=== PATIENT | female | born 1945 | race Caucasian/White ===

== ENCOUNTER 2019-04-09 11:46 | Inpatient (IN) | payer MEDICARE, SELFPAY ==
[2019-04-09] VITALS (10 sets, daily range): BP systolic 108–129; BP diastolic 53–87; PULSE 70–111; RESP 16–20; TEMP 36.7–39.1; O2SAT 94–97; BMI 29.8; BMI 30.7
[2019-04-09] MEDS: 0.9% Normal Saline 1,000 ML 1000 ML IV ×2 (13:19→14:20)
[2019-04-09 13:29] LABS: Absolute Lymphocyte Count 0.69 X10^3/ul (0.83-4.51); Absolute Neutrophil Count 14.2 X10^3/uL (2.0-7.7); Basophil# 0.01 X10^3/uL; Basophil% 0.1 % (0-1); Differential Indicated SCAN CRITERIA MET; Hematocrit 23.2 % (37-47); Hemoglobin 7.4 g/dl (12.0-15.0); Lymphocyte # 0.69 X10^3/ul (4.0); Lymphocyte % 4.2 % (19-41); Mean Corp Hgb Conc 31.9 g/gl (32-36); Mean Corpuscular Volume 100.4 fL (81-99); Mean Platelet Vol. 9.8 fl (6.2-12.0); Monocyte# 1.33 X10^3/uL; Monocyte% 8.1 % (0-10); Neutrophil # 14.21 X10^3/uL (2.7-7.7); POSITIVE COUNT NO; POSITIVE DIFFERENTIAL NO; POSITIVE MORPHOLOGY YES; Platelet Count 105 K/mm3 (150-450); RBC Distribution Width CV 18.9 % (11.6-14.6); RBC Distribution Width SD 70.7 fl (35.1-43.9); Red Blood Count 2.31 M/mm3 (4.2-5.4); White Blood Count 16.3 K/mm3 (4.4-11.0)
[2019-04-09 13:38] LABS: AST(SGOT) 20 U/L (15-37); Alanine Aminotransfer ALT/SGPT 14 U/L (13-56); Albumin, Serum 2.6 g/dL (3.2-5.0); Alkaline Phosphatase 121 U/L (45-117); Anion Gap 8 (5-15); BUN 45 mg/dL (7-18); BUN/Creat Ratio 22.6 RATIO (10-20); Calcium,Total 8.3 mg/dL (8.5-10.1); Chloride 107 mmol/L (98-107); Creatinine, Serum 1.99 mg/dL (0.55-1.02); EST Glomerular Filtration Rate 26 mL/min (>60); Est Glom Filt Rate - Afr Amer 32 mL/min (>60); Estimated Creatinine Clearance 22.07 ml/min; Glucose 221 mg/dL (74-106); Lipase 58 U/L (73-393); Potassium 4.5 mmol/L (3.5-5.1); Protein, Total 7.6 g/dL (6.4-8.2); Sodium Level 137 mmol/L (136-145)
[2019-04-09 14:23] LABS: Mucous, Urine 0 SEEN /hpf (<or=2+)
[2019-04-09 14:40] LABS: Color, Urine Yellow (Yellow); Glucose, Dipstick Normal (Normal); Ketone-Dipstick 5 mg/dl (Negative); Leukocyte Esterase-Dipstick 500 /ul (Negative); Nitrite-Dipstick Negative (Negative); Occult Blood-Urine 250 /ul (Negative); Protein-Dipstick 30 mg/dl (Negative); Specific Gravity, Urine 1.025 (1.002-1.030); Urine Clarity Turbid (Clear); Urine Urobilinogen 1 mg/dl (Normal)
[2019-04-09 14:43] LABS: Urine Bilirubin Dipstick 1 mg/dL (Negative)
[2019-04-09] MEDS: 0.9% Normal Saline 1,000 ML 999 ML IV (15:30)
[2019-04-09 15:36] LABS: Bacteria 4+ /hpf (None Seen); Red Blood Cells-Urine 25-50 SEEN /hpf (0-5); Squamous Epithelial Cells - UA 5-10 SEEN /hpf (5-10); White Blood Cells >100 SEEN /hpf (0-5)
[2019-04-09 15:41] LABS: Lactic Acid 1.5 mmol/L (0.4-2.0)
--- NOTE | 2019-04-09 15:50 | ED.DCSUM_ITS ---
- ER Visit Summary Date of Service: 04/09/19 Chief Complaint: Diarrhea History of Present Illness: The patient is a 74 F who has a history of endometrial cancer with metastasis. She currently sees Dr. Chairez. She reports last having chemotherapy about 4 weeks ago. She states she had diarrhea for the past 2 to 3 days. Today was incontinent in the bed. She is been unable to eat solid foods this week stating that the food does get stuck in her mouth. She can handle liquids okay. She states this happened once before with chemotherapy. Yesterday she had a temperature of 100. Blood cultures were obtained at her oncologist office and she was started on Augmentin. Today family spoke with the office and they sent her to the emergency department for further evaluation. Yesterday's white blood cell count was 8.99 hemoglobin was 8.9. Creatinine was 1.37 with a BUN of 29. Chest x-ray yesterday was obtained and was negative for infiltrates Physical Examination: Afebrile vital signs are stable Gen: Well-nourished well-developed Head: Normocephalic atraumatic Eyes: Perrl EOMI ENT: TMs clear no rhinorrhea moist mucous membranes Neck: Supple no lymphadenopathy no JVD nontender CVS: Regular rate rhythm no murmurs normal S1-S2 Respiratory: No distress clear to auscultation bilaterally chest nontender Abdomen: Soft nontender nondistended normal bowel sounds no masses Back: Nontender Extremity: Nontender no edema Skin: Normal color no rash Neuro: alert orientated ?3 CN II-XII intact normal strength sensation Psych: Normal affect normal mood Test Results: White count 16.3 hemoglobin 7.4. BUN 45 with creatinine 1.99. Liver lipase negative. Urinalysis: White blood cell count greater than 100 red blood cells 25-50 4+ bacteria. Lactic acid 1.5. Emergency Department Course and Treatment: Patient received IV fluids and Rocephin. Urine culture was sent. Patient began to have Rigor's and her temperatures up to 99.4. I believe the patient to be septic. Our plan will be admission to the hospital for further care. Impression: 1. Acute urine tract infection 2. Acute kidney injury 3. Dehydration 4. Acute on chronic anemia 5. Sepsis This note was generated with [employer] software. It may contain incorrect words, spelling, and punctuation that were not noted in review of the chart prior to signing ED Disposition - Plan for ED Patient: Referrals: [facility] Doctor,Out of [Primary Care Provider] -
[2019-04-09] MEDS: Acetaminophen 500 MG Tablet 1000 MG PO (16:15)
[2019-04-09] MEDS: Ceftriaxone 1 GM/50 ML BAG IV (16:25)
--- NOTE | 2019-04-09 16:27 | PCM.HP.STD ---
Problem List (1) UTI (urinary tract infection) Status: Acute (2) HTN (hypertension) Status: Chronic (3) Peripheral neuropathy Status: Chronic (4) Iron deficiency anemia Status: Chronic (5) GERD (gastroesophageal reflux disease) Status: Chronic History of Present Illness Date of Admission: 04/09/19 Chief Complaint: Chills, malaise, diarrhea. The patient is a 74 year old F who presents emergency room due to chills, fever and diarrhea. Patient reports for the past week she has been generally feeling unwell. She reports yesterday morning she developed shaking chills and was to get chemotherapy which was canceled due to fever/chills. She also reports over the past 2 days she has had diarrhea which is black in color. She does report she is on iron supplementation. She denies history of diarrhea with prior chemotherapy treatments. She was started on Augmentin by her oncologist yesterday due to fever. She complains of poor oral intake and mild nausea. Denies emesis. She reports she has noticed lower back pain. She denies urinary symptoms including frequency, dysuria. She is currently undergoing chemotherapy treatment for metastatic endometrial cancer. Her other past medical history includes hypertension, iron deficiency anemia, peripheral neuropathy, GERD. Past Medical History Past Medical History (Chronic Problems): Chronic Problems HTN (hypertension) (Chronic) Peripheral neuropathy (Chronic) Iron deficiency anemia (Chronic) GERD (gastroesophageal reflux disease) (Chronic) Allergies No Known Allergies Allergy (Verified 04/09/19 11:49) Home Medications: Ambulatory Orders Medication Instructions Recorded Acetaminophen [Tylenol Extra 500 mg PO Q6H PRN PRN 04/09/19 Strength] Amlodipine Besylate 5 mg PO DAILY 04/09/19 Amoxicillin/Potassium Clav 1 tab PO BID 04/09/19 [Augmentin 875-125 Tablet] Benzonatate 100 mg PO TID 04/09/19 Ferrous Sulfate [Iron] 325 mg PO DAILY 04/09/19 Fexofenadine HCl [Ema Allergy] 180 mg PO DAILY 04/09/19 Gabapentin [Neurontin] 100 mg PO BID 04/09/19 Lisinopril [Zestril] 10 mg PO DAILY 04/09/19 Omeprazole 20 mg PO DAILY 04/09/19 Ondansetron HCl [Zofran] 8 mg PO Q8 PRN 04/09/19 Surgical History: - - Radical hysterectomy and bilateral salpingo-oophorectomy, left chest port placement, esophageal/pharyngeal stricture dilatation. 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 Paternal History Items: - - Denies known paternal medical history including cardiac history. Review of Systems Constitutional: Reports: Chills, Fever, Malaise HEENT: Denies: Head Aches, Sinus Congestion, Sinus Drainage Cardiovascular: Denies: Chest Pain, Palpitations Respiratory: Denies: Cough, Shortness of breath at rest, Sputum production Gastrointestinal: Reports: Diarrhea, Nausea, Melena. Denies: Abdominal Pain, Vomiting Genitourinary: Reports: - - Flank pain. Denies: Dysuria, Frequency, Hematuria, Urgency Musculoskeletal: Denies: Joint Pain, Joint Tenderness Skin: Denies: Rash, Wounds Neurological: Denies: Numbness, Tingling, Focal weakness Psychiatric: Denies: Anxiety, Depression, Homicidal Ideations, Suicidal Ideations Hematologic/ Lymphatic: Denies: Easy Bruising, Easy Bleeding VTE Information - Inpt Only VTE Present on Admission: No VTE Mechan Device Prophylaxis: None VTE Pharm Prophylaxis ordered?: Yes Patient Problems: Active and Suspected Problems UTI (urinary tract infection) (Acute) - Physical Exam General: Alert, Oriented x3, Cooperative, - - Ill-appearing, rigors HEENT: Atraumatic, PERRLA, EOMI, Normocephalic Oral: Dry Mucosa Neck: Supple, No JVD, Negative Carotid Bruits Lungs: Clear to auscultation, Normal air movement Cardiovascular: Regular rate, Regular Rhythm, Normal S1, Normal S2, No murmurs Abdomen: Bowel Sounds Present, Soft, Non Tender, Non-Distended Extremities: No clubbing, No cyanosis, No edema, Capillary Refill Less than 3 Seconds Skin: No rashes, No breakdown Musculoskeletal: No Tenderness to Palpation of Joints or Extremities Neurological: Cranial nerves II-XII grossly intact, Neuro grossly intact Psych/Mental Status: Normal Affect, Appropriate Vital Signs Temp Pulse Resp BP Pulse Ox 102.4 F H 111 H 20 H 129/87 H 96 04/09/19 16:18 04/09/19 16:18 04/09/19 16:18 04/09/19 16:18 04/09/19 16:18 Oxygen Delivery Method Room Air Weight: 174 lb Body Mass Index (BMI) 29.8 Laboratory Tests Past 24 Hrs 04/09/19 04/09/19 04/09/19 13:15 13:15 14:15 WBC 16.3 H RBC 2.31 L Hgb 7.4 L Hct 23.2 L MCV 100.4 H MCH 32.0 MCHC 31.9 L RDW 18.9 H RDW Differential 70.7 H Plt Count 105 L MPV 9.8 Immature Gran % (Auto) 0.600 Neut % (Auto) 87.0 H Lymph % (Auto) 4.2 L [place] % (Auto) 8.1 Eos % (Auto) 0.0 Baso % (Auto) 0.1 Absolute Neuts (auto) 14.2 H Absolute Lymphs (auto) 0.69 L Total Counted Not Reportable Differential Comment COMMENT Sodium 137 Potassium 4.5 Chloride 107 Carbon Dioxide 22.0 Anion Gap 8 BUN 45 H Creatinine 1.99 H Estim Creat Clear Calc 22.07 Est GFR (MDRD) Af Amer 32 L Est GFR (MDRD) Non-Af 26 L BUN/Creatinine Ratio 22.6 H Glucose 221 H Lactic Acid Calcium 8.3 L Total Bilirubin 0.40 Direct Bilirubin 0.20 AST 20 ALT 14 Alkaline Phosphatase 121 H Total Protein 7.6 Albumin 2.6 L Globulin 5.0 H Lipase 58 L Urine Color Yellow Urine Clarity Turbid Urine pH 5.0 Ur Specific [place] 1.025 Urine Protein 30 H Urine Glucose (UA) Normal Urine Ketones 5 H Urine Occult Blood 250 H Urine Nitrite Negative Urine Bilirubin 1 H Urine Urobilinogen 1 H Ur Leukocyte Esterase 500 H Urine RBC 25-50 SEEN Urine WBC >100 SEEN Ur Squamous Epith Cells 5-10 SEEN Urine Bacteria 4+ Urine Mucus 0 SEEN 04/09/19 15:09 WBC RBC Hgb Hct MCV MCH MCHC RDW RDW Differential Plt Count MPV Immature Gran % (Auto) Neut % (Auto) Lymph % (Auto) [place] % (Auto) Eos % (Auto) Baso % (Auto) Absolute Neuts (auto) Absolute Lymphs (auto) Total Counted Differential Comment Sodium Potassium Chloride Carbon Dioxide Anion Gap BUN Creatinine Estim Creat Clear Calc Est GFR (MDRD) Af Amer Est GFR (MDRD) Non-Af BUN/Creatinine Ratio Glucose Lactic Acid 1.5 Calcium Total Bilirubin Direct Bilirubin AST ALT Alkaline Phosphatase Total Protein Albumin Globulin Lipase Urine Color Urine Clarity Urine pH Ur Specific [place] Urine Protein Urine Glucose (UA) Urine Ketones Urine Occult Blood Urine Nitrite Urine Bilirubin Urine Urobilinogen Ur Leukocyte Esterase Urine RBC Urine WBC Ur Squamous Epith Cells Urine Bacteria Urine Mucus Assessment/Plan All Active Problems UTI (urinary tract infection) (Acute) 1. Acute sepsis secondary to acute UTI-(WBC 16.3, Temp 102.4F, tachycardic) UA significant for greater than 100 WBC, 500 leukocyte, 4+ bacteria. Urine culture pending. IV Rocephin. IV fluids. Obtain blood cultures. PRN Tylenol for fever. PRN Zofran for nausea. 2. Acute kidney injury secondary to dehydration-unclear baseline. IV fluids. Trend BMP. 3. Suspected acute anemia on chronic iron deficiency anemia/macrocytic anemia-unknown baseline. Hemoglobin 7.4 on admission. Trend CBC. Stool for occult blood. Continue iron supple mentation. 4. Acute diarrhea-possible viral gastroenteritis. Send stool for C. difficile, enteric bacteriology. 5. Elevated glucose-possible stress response. Check hemoglobin A1c. 6. Metastatic endometrial cancer-follows with Dr. Rodriguez. Chemotherapy treatment canceled yesterday due to fever and chills. Left chest port in place. PT/OT. 7. Hypertension-stable, continue home amlodipine regimen. Hold lisinopril regimen given JOHN. 8. Peripheral neuropathy-continue gabapentin regimen. 9. GERD-continue PPI. DVT prophylaxis-SCDs, hold pharmacologic prophylaxis pending further anemia work-up This patient was seen by RHODA Mckeon under the supervision of Dr. Wayne.
[2019-04-09] MEDS: 0.9% Normal Saline 1,000 ML 150 ML IV (17:37)
[2019-04-09 17:58] LABS: Magnesium 1.8 mg/dL (1.6-2.6)
[2019-04-09] MEDS: Pantoprazole Sodium 40 MG Tablet PO (21:18)
[2019-04-09] MEDS: Gabapentin 100 MG Capsule PO (21:18)
[2019-04-09] MEDS: Acetaminophen 325 MG Tablet 650 MG PO (21:18)
[2019-04-09] MEDS: Ferrous Sulfate 325 MG Tablet PO (21:18)
[2019-04-09 22:46] LABS: Hematocrit 20.6 % (37-47); Hemoglobin 6.4 g/dl (12.0-15.0)
[2019-04-10] VITALS (21 sets, daily range): BP systolic 104–135; BP diastolic 46–69; PULSE 70–92; RESP 16–18; TEMP 36.4–36.8; O2SAT 92–100; BMI 30.7
--- NOTE | 2019-04-10 | IMM_PTH ---
PATIENT: ANDREI MCMAHAN LOC: MS3 U#:[id number] AGE/SX: 74/F [place] [facility] [place]: Dr. Jami Gordillo DO : 1945 BED: 1 DIS: 04/11/2019 SPEC #: [id number] RECD: 04/12/19 11:17 STATUS: OSEI REQ #: [id number] TRAVIS: 04/10/19 00:[address]: Tawny Craig DEPT: IMMUNOHISTOCHEMISTRY RECD BY: Edson Galindo ENTERED: 04/12/19 11:18 SP TYPE: IMMUNO OTHR DR: MD Dr. Jami Arnold DO Out [facility] Doctor Tissues: Gastric mucous membrane Procedures: H Pylori (initial) PHYSICIAN & INSTITUTION [place] [id number] SPECIMEN INFORMATION: Tissue Source: Antral biopsy Clinical Info: Anemia Specimen Number: [id number] CPT code: 56818 METHODOLOGY: Deparaffinized sections of prefer/formalin-fixed tissue or PAP/DQ stained slides are incubated with monoclonal/polyclonal antibodies/oligonucleotide probes. Localization is made via biotin free immunoperoxidase method. Appropriate controls are performed and reacted as expected. Results on target cell population are indicated in the following table: RESULTS: ANTIBODY / CLONE RESULT H Pylori (polyclonal) negative These tests were developed and their performance characteristics determined by [facility]. They may not have been cleared or approved by the U.S. Food and Drug Administration. The FDA has determined that such clearance or approval is not necessary. INTERPRETATION: Antral biopsy: Negative for Helicobacter pylori organisms. FA:kyle 04/13/19
[2019-04-10] MEDS: 0.9% Normal Saline 1,000 ML 150 ML IV (00:33)
[2019-04-10] MEDS: 0.9% NaCl Peripheral Flush Adult/Peds IV ×5 (04:49→05:55)
[2019-04-10 05:40] LABS: Hematocrit 19.4 % (37-47); Mean Corp Hgb Conc 30.9 g/gl (32-36); Mean Corpuscular Hgb 31.3 pg (27.0-32.0); Platelet Count 80 K/mm3 (150-450); RBC Distribution Width SD 71.4 fl (35.1-43.9); Red Blood Count 1.92 M/mm3 (4.2-5.4); White Blood Count 12.4 K/mm3 (4.4-11.0)
[2019-04-10 05:41] LABS: Anion Gap 9 (5-15); BUN 39 mg/dL (7-18); BUN/Creat Ratio 25.2 RATIO (10-20); Calcium,Total 6.9 mg/dL (8.5-10.1); Chloride 117 mmol/L (98-107); Creatinine, Serum 1.55 mg/dL (0.55-1.02); EST Glomerular Filtration Rate 35 mL/min (>60); Est Glom Filt Rate - Afr Amer 42 mL/min (>60); Estimated Creatinine Clearance 28.33 ml/min; Glucose 133 mg/dL (74-106); Potassium 4.4 mmol/L (3.5-5.1); Scan Indicated on CBC? Y/N YES- FLAGS NOTED; Sodium Level 143 mmol/L (136-145)
[2019-04-10 06:10] LABS: Differential Comment SCAN
[2019-04-10] MEDS: Electrolyte Solution/Peg's 4000 ML PO (09:07)
--- NOTE | 2019-04-10 10:27 | PCM.CONS.B ---
- Consult Date of Consult: 04/10/19 - Reason for Consult Chief Complaint: anemia, fever History of Present Illness: 74 y/o WF presented to [facility] ED - referred from her oncologists' office for anemia and weakness and fever/chills. Hemoglobin was 8.9, this morning it is down to hemoglobin of 6. Had colonoscopy in 2012 revealing benign polyps. Denies noting any blood in stools. Denies hematemesis. Denies abdominal pain. Denies history of PUD. Notes dark stools but is on iron supplementation. 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 Past Surgical History: radical abdominal hysterectomy/BSO cholecystectomy tubes tied left IJ portacath esophageal/pharyngeal dilatation 2013 Medications: Acetaminophen [Tylenol Extra 500 mg PO Q6H PRN PRN Amlodipine Besylate 5 mg PO DAILY Amoxicillin/Potassium Clav 1 tab PO BID Benzonatate 100 mg PO TID Ferrous Sulfate [Iron] 325 mg PO DAILY Fexofenadine HCl [Ema Allergy] 180 mg PO DAILY Gabapentin [Neurontin] 100 mg PO BID Lisinopril [Zestril] 10 mg PO DAILY Omeprazole 20 mg PO DAILY Ondansetron HCl [Zofran] prn Allergies: Has no known drug allergies Social history: TOB use denies lives in [facility] Review of Systems: General - denies fevers, generalized weakness - on chemotherapy Cardiovascular denies chest pain, denies history of heart attack Pulmonary denies shortness of breath, denies coughing up blood Gastrointestinal as per HPI, denies blood in stools, denies abdominal pain Neurological has peripheral neuropathy due to chemotherapy, denies seizures, denies history of stroke Genitourinary denies burning with urination, denies blood in urine Hematological denies spontaneous/prolonged bleeding Skin denies open non healing wounds Musculoskeletal recent dislocation of left shoulder Endocrine denies diabetes Psychological denies hallucinations Physical examination: Vital signs Temp Wt: 173# Ht: 5'4 Temp 97.8F General WD/WN WF in no apparent distress, alert and oriented, not septic appearing HEENT Normocephalic. EOM intact with sclera clear and no icterus noted. Neck is supple with no jugular venous distention noted. Trachea is midline. Lungs normal breath sounds. No rales/rhonchi/wheezing noted. No labored breathing noted, such as retractions. No cough heard. Heart normal S1 and S2 auscultated. No rubs/clicks/murmurs noted. Normal size and location by auscultation. Abdomen soft and benign. Normal bowel sounds Extremities no pitting edema noted. . Genitourinary/Rectal deferred Skin normal skin integrity. Neurological non focal. Psychological normal affect, patient is calm and appropriate Impression: anemia on chemotherapy for metastatic uterine cancer to lung Discussion/Plan: I have discussed the above with the patient. Given that she has anemia and that she is on chemotherapy, will evaluate for GI source of bleeding. I have offered upper and lower endoscopy. I have explained the procedures to the patient. I have counseled the patient as to the risks of the procedure, including but not limited to: infection, bleeding, injury to any intraabdominal organs such as liver/spleen, perforation of the GI tract, inability to complete the procedure, complications of anesthesia, etc. She understands. She agrees to proceed. Will have patient drink colyte and then proceed with endoscopies at 5 pm today. I have answered all questions to the patient?s satisfaction and the patient has no further questions.
--- NOTE | 2019-04-10 10:47 | PN_ITS ---
Patient Problems: Active and Suspected Problems UTI (urinary tract infection) (Acute) Subjective: Patient seen and examined. Fever, chills improved. Denies dizziness, lightheadedness, shortness of breath. Plan for upper and lower scope at this evening due to anemia. - Physical Exam General: Alert, Oriented x3, Cooperative HEENT: Atraumatic, PERRLA, EOMI, Normocephalic Neck: Supple, No JVD, Negative Carotid Bruits Lungs: Clear to auscultation, Normal air movement Cardiovascular: Regular rate, Regular Rhythm, Normal S1, Normal S2, No murmurs Abdomen: Bowel Sounds Present, Soft, Non Tender, Non-Distended Extremities: No clubbing, No cyanosis, No edema, Capillary Refill Less than 3 Seconds Skin: No rashes, No breakdown Musculoskeletal: No Tenderness to Palpation of Joints or Extremities Neurological: Cranial nerves II-XII grossly intact, Neuro grossly intact Psych/Mental Status: Normal Affect, Appropriate Vital Signs Temp Pulse Resp BP Pulse Ox 98.1 F 78 18 129/59 H 96 04/10/19 10:30 04/10/19 10:30 04/10/19 10:30 04/10/19 10:30 04/10/19 10:30 Oxygen Delivery Method Room Air Weight: 178 lb 12.718 oz Body Mass Index (BMI) 30.7 Intake and Output for Last 24 Hours 04/08/19 04/09/19 04/10/19 23:59 23:59 23:59 Intake Total 1435 / 1435 Balance 1435 / 1435 Microbiology Past 72 Hours 04/09/19 17:55 Enteric Bacteriology - Final Stool 04/09/19 17:55 C. difficile DNA Amplification - Final Stool 04/09/19 17:55 Stool Occult Blood (CUONG) - Final Stool Laboratory Tests Past 24 Hrs 04/09/19 04/09/19 04/09/19 13:15 13:15 13:15 WBC 16.3 H RBC 2.31 L Hgb 7.4 L Hct 23.2 L MCV 100.4 H MCH 32.0 MCHC 31.9 L RDW 18.9 H RDW Differential 70.7 H Plt Count 105 L MPV 9.8 Immature Gran % (Auto) 0.600 Neut % (Auto) 87.0 H Lymph % (Auto) 4.2 L [place] % (Auto) 8.1 Eos % (Auto) 0.0 Baso % (Auto) 0.1 Absolute Neuts (auto) 14.2 H Absolute Lymphs (auto) 0.69 L Total Counted Not Reportable Differential Comment COMMENT Sodium 137 Potassium 4.5 Chloride 107 Carbon Dioxide 22.0 Anion Gap 8 BUN 45 H Creatinine 1.99 H Estim Creat Clear Calc 22.07 Est GFR (MDRD) Af Amer 32 L Est GFR (MDRD) Non-Af 26 L BUN/Creatinine Ratio 22.6 H Glucose 221 H Hemoglobin A1c 5.0 Lactic Acid Calcium 8.3 L Phosphorus Magnesium Total Bilirubin 0.40 Direct Bilirubin 0.20 AST 20 ALT 14 Alkaline Phosphatase 121 H Total Protein 7.6 Albumin 2.6 L Globulin 5.0 H Lipase 58 L Urine Color Urine Clarity Urine pH Ur Specific [place] Urine Protein Urine Glucose (UA) Urine Ketones Urine Occult Blood Urine Nitrite Urine Bilirubin Urine Urobilinogen Ur Leukocyte Esterase Urine RBC Urine WBC Ur Squamous Epith Cells Urine Bacteria Urine Mucus Blood Type Antibody Screen Crossmatch 04/09/19 04/09/19 04/09/19 13:15 14:15 15:09 WBC RBC Hgb Hct MCV MCH MCHC RDW RDW Differential Plt Count MPV Immature Gran % (Auto) Neut % (Auto) Lymph % (Auto) [place] % (Auto) Eos % (Auto) Baso % (Auto) Absolute Neuts (auto) Absolute Lymphs (auto) Total Counted Differential Comment Sodium Potassium Chloride Carbon Dioxide Anion Gap BUN Creatinine Estim Creat Clear Calc Est GFR (MDRD) Af Amer Est GFR (MDRD) Non-Af BUN/Creatinine Ratio Glucose Hemoglobin A1c Lactic Acid 1.5 Calcium Phosphorus 2.0 L Magnesium 1.8 Total Bilirubin Direct Bilirubin AST ALT Alkaline Phosphatase Total Protein Albumin Globulin Lipase Urine Color Yellow Urine Clarity Turbid Urine pH 5.0 Ur Specific [place] 1.025 Urine Protein 30 H Urine Glucose (UA) Normal Urine Ketones 5 H Urine Occult Blood 250 H Urine Nitrite Negative Urine Bilirubin 1 H Urine Urobilinogen 1 H Ur Leukocyte Esterase 500 H Urine RBC 25-50 SEEN Urine WBC >100 SEEN Ur Squamous Epith Cells 5-10 SEEN Urine Bacteria 4+ Urine Mucus 0 SEEN Blood Type Antibody Screen Crossmatch 04/09/19 04/10/19 04/10/19 22:34 04:48 04:48 WBC 12.4 H RBC 1.92 L Hgb 6.4 L 6.0 L Hct 20.6 L 19.4 L MCV 101.0 H MCH 31.3 MCHC 30.9 L RDW 19.0 H RDW Differential 71.4 H Plt Count 80 L MPV 11.0 Immature Gran % (Auto) Neut % (Auto) Lymph % (Auto) [place] % (Auto) Eos % (Auto) Baso % (Auto) Absolute Neuts (auto) Absolute Lymphs (auto) Total Counted Differential Comment SCAN Sodium 143 Potassium 4.4 Chloride 117 H Carbon Dioxide 17.0 L Anion Gap 9 BUN 39 H Creatinine 1.55 H Estim Creat Clear Calc 28.33 Est GFR (MDRD) Af Amer 42 L Est GFR (MDRD) Non-Af 35 L BUN/Creatinine Ratio 25.2 H Glucose 133 H Hemoglobin A1c Lactic Acid Calcium 6.9 L Phosphorus Magnesium Total Bilirubin Direct Bilirubin AST ALT Alkaline Phosphatase Total Protein Albumin Globulin Lipase Urine Color Urine Clarity Urine pH Ur Specific [place] Urine Protein Urine Glucose (UA) Urine Ketones Urine Occult Blood Urine Nitrite Urine Bilirubin Urine Urobilinogen Ur Leukocyte Esterase Urine RBC Urine WBC Ur Squamous Epith Cells Urine Bacteria Urine Mucus Blood Type Antibody Screen Crossmatch 04/10/19 06:00 WBC RBC Hgb Hct MCV MCH MCHC RDW RDW Differential Plt Count MPV Immature Gran % (Auto) Neut % (Auto) Lymph % (Auto) [place] % (Auto) Eos % (Auto) Baso % (Auto) Absolute Neuts (auto) Absolute Lymphs (auto) Total Counted Differential Comment Sodium Potassium Chloride Carbon Dioxide Anion Gap BUN Creatinine Estim Creat Clear Calc Est GFR (MDRD) Af Amer Est GFR (MDRD) Non-Af BUN/Creatinine Ratio Glucose Hemoglobin A1c Lactic Acid Calcium Phosphorus Magnesium Total Bilirubin Direct Bilirubin AST ALT Alkaline Phosphatase Total Protein Albumin Globulin Lipase Urine Color Urine Clarity Urine pH Ur Specific [place] Urine Protein Urine Glucose (UA) Urine Ketones Urine Occult Blood Urine Nitrite Urine Bilirubin Urine Urobilinogen Ur Leukocyte Esterase Urine RBC Urine WBC Ur Squamous Epith Cells Urine Bacteria Urine Mucus Blood Type B NEGATIVE Antibody Screen NEGATIVE Crossmatch See Detail Medical Necessity - Tobacco Use Smoking Status: Never smoker Tobacco Use: Non-smoker, Secondhand Assessment/Plan All Active Problems UTI (urinary tract infection) (Acute) 1. Acute sepsis secondary to acute UTI-(WBC 16.3, Temp 102.4F, tachycardic) UA significant for greater than 100 WBC, 500 leukocyte, 4+ bacteria. Urine and blood culture pending. IV Rocephin. IV fluids. PRN Tylenol for fever. PRN Zofran for nausea. 2. Acute kidney injury secondary to dehydration-improving with IV fluids. Trend BMP. 3. Acute anemia on chronic iron deficiency anemia/macrocytic anemia-Hemoglobin 7.4 on admission. Hemoglobin down to 6.[address] Craig, general surgery consulted. Stool for occult blood negative. Plan for upper and lower scopes this evening. 1 unit PRBC. Trend H&H. 4. Acute diarrhea-stool negative for C. difficile, enteric bacteriology negative. 5. Elevated glucose-suspected stress response. Hemoglobin A1c normal. 6. Metastatic endometrial cancer-follows with Dr. Rodriguez. Chemotherapy treatment canceled 04/08/19 due to fever and chills. Left chest port in place. PT/OT. 7. Hypertension-stable, continue home amlodipine regimen. Hold lisinopril regimen given JOHN. 8. Peripheral neuropathy-continue gabapentin regimen. 9. GERD-continue PPI. DVT prophylaxis-SCDs, hold pharmacologic prophylaxis pending further anemia work-up. This patient was seen by RHODA Mckeon under the supervision of Dr. Gordillo.
[2019-04-10] MEDS: Ceftriaxone 1 GM/50 ML BAG IV (13:01)
[2019-04-10] MEDS: 0.9% Normal Saline 1,000 ML 100 ML IV (13:01)
--- NOTE | 2019-04-10 13:16 | CASEMGMT ---
ELIZABETH YI assessment: Face to Face with patient for initial transition planning/care coordination assessment. ELIZABETH YI introduced self and role at [facility], pt voices understanding and consents to assessment at this time. Pt is lying in bed in no distress at this time. Pt is A/Ox4 at this time and answers all questions appropriately at this time. Care providers, pharmacy, and demographics verified at this time. PCP: Tawny Serrano Specialists: mitchell Rodriguez Preferred Pharmacy: [facility] Insurance: AeR Prescription Benefit: AeR Living Will/HPOA: Pt states has LW/HPOA and states that her , Paul Rodriguez, is HPOA. LNOK: Paul Rodriguez, Living Arrangements: Pt states lives with in a split level home and states no concerns at home at this time. Pt is independent with ADL's. Transportation: Pt states drives self and states no transportation concerns at this time. DME/HHC: Pt states has walker at home that she does not use and denies need for any further DME at this time. Pt states no hx of HHC or SNF in the past. Pt states no concerns with going home at time of discharge. Pt states is retired. Pt states does not smoke or drink ETOH. Pt states no further questions/concerns/needs at this time. CM to follow for any further discharge planning/needs. Advised pt to ask for CM if any further questions/concerns/needs arise, voices understanding. Pt Goal: Home Plan: [place] ELIZABETH YI
--- NOTE | 2019-04-10 16:30 | NURSING ---
PT TRANSPORTED TO PACU FOR EGD/COLONSCOPY- REPORT GIVEN
--- NOTE | 2019-04-10 17:05 | EGD_PTH ---
PATIENT: ANDREI MCMAHAN LOC: MS3 U#:[id number] AGE/SX: 74/F ROOM: [facility] RE04/09/[address]: Dr. Jami Gordillo DO : 1945 BED: 1 DIS: 04/11/2019 SPEC #: [id number] RECD: 04/10/19 18:59 STATUS: OSEI REErin #: [id number] TRAVIS: 04/10/19 17:[address]: Tawny Craig DEPT: SURGICAL PATHOLOGY RECD BY: Rui Gonzalez ENTERED: 04/12/19 10:08 SP TYPE: EGD BIOPSY OTHR DR: MD Dr. Jami Arnold DO Out [facility] Doctor Tissues: Gastric mucous membrane Procedures: Surgery Specimen Level IV HEADER OPERATION: Colonoscopy, EDG ([facility]) PRE-OP DIAGNOSIS: Anemia TISSUE SUBMITTED: Antral biopsy for histo and H. pylori MICROSCOPIC DIAGNOSIS Antral biopsy: Mild chronic gastritis. Negative for Helicobacter pylori organisms. See comment. FA:kyle 04/13/19 COMMENT The results of immunohistochemistry for Helicobacter pylori will be reported separately ([id number]). MICROSCOPIC DESCRIPTION Slides are reviewed. GROSS DESCRIPTION Received in fixative is one container labeled with the patient's name and designated antral biopsy. The specimen consists of two irregular fragments of alamo-red soft tissue that in aggregate measure 0.2 x 0.1 x 0.1 cm. The specimen is totally submitted in one cassette. / CE:kyle 04/12/19 TC:3 CPT: 42085
--- NOTE | 2019-04-10 17:43 | OP.ENDO_ITS ---
04/10/2019 Out Of [facility] Doctor Re : Upper GI endoscopy procedure for Tavia Rodriguez Dear [facility] Doctor This procedure was performed on Wednesday, April 10, 2019. My impressions and recommendations are as follows: Impressions : - Normal duodenal bulb, first portion of the duodenum and second portion of the duodenum. - Erythematous mucosa in the stomach. Biopsied. - Small hiatal hernia. Recommendations : - Discharge patient to home (ambulatory). - Resume previous diet. - Continue present medications. - Await pathology results. - My office will telephone with pathology results in 1-2 weeks My findings are described in the full procedure note, which is enclosed. If I can be of further assistance, please feel free to contact me at Doctor phone number(s): , Work: . Sincerely, MD Tawny Hsu MD 04/10/2019 5:42:43 PM This report has been signed electronically.
--- NOTE | 2019-04-10 17:45 | OP.ENDO_ITS ---
04/10/2019 Out Of Town Doctor Re : Colonoscopy procedure for Tavia Rodriguez Dear [facility] Doctor This procedure was performed on Wednesday, April 10, 2019. My impressions and recommendations are as follows: Impressions : - Diverticulosis in the sigmoid colon. - Non-bleeding external and internal hemorrhoids. - No specimens collected. Recommendations : - No repeat colonoscopy due to current age (66 years or older). - Continue present medications. My findings are described in the full procedure note, which is enclosed. If I can be of further assistance, please feel free to contact me at Doctor phone number(s): , Work: . Sincerely, MD Tawny Hsu MD 04/10/2019 5:44:50 PM This report has been signed electronically.
--- NOTE | 2019-04-10 17:45 | PCA ---
pt off floor
[2019-04-10] MEDS: levoFLOXacin IV 250 MG/50 ML BAG 50 MG IV (18:23)
[2019-04-10] MEDS: Ensure Clear 120 ML Liquid PO (18:26)
[2019-04-10] MEDS: Gabapentin 100 MG Capsule PO (22:22)
[2019-04-10] MEDS: Ferrous Sulfate 325 MG Tablet PO (22:23)
[2019-04-11] MEDS: 0.9% Normal Saline 1,000 ML 100 ML IV (02:55)
[2019-04-11 03:00] VITALS: PULSE 67
[2019-04-11 03:32] VITALS: BP 144/75; PULSE 79; RESP 16; TEMP 37; O2SAT 98
[2019-04-11 06:45] LABS: Anion Gap 6 (5-15); BUN 24 mg/dL (7-18); BUN/Creat Ratio 23.8 RATIO (10-20); Calcium,Total 7.2 mg/dL (8.5-10.1); Chloride 116 mmol/L (98-107); Creatinine, Serum 1.01 mg/dL (0.55-1.02); EST Glomerular Filtration Rate 57 mL/min (>60); Est Glom Filt Rate - Afr Amer 69 mL/min (>60); Estimated Creatinine Clearance 43.48 ml/min; Glucose 85 mg/dL (74-106); Potassium 3.7 mmol/L (3.5-5.1); Sodium Level 140 mmol/L (136-145)
[2019-04-11 06:51] LABS: Hematocrit 24.6 % (37-47); Hemoglobin 7.7 g/dl (12.0-15.0); Mean Corp Hgb Conc 31.3 g/gl (32-36); Mean Corpuscular Hgb 30.2 pg (27.0-32.0); Mean Corpuscular Volume 96.5 fL (81-99); Mean Platelet Vol. 11.5 fl (6.2-12.0); Platelet Count 76 K/mm3 (150-450); RBC Distribution Width CV 20.8 % (11.6-14.6); RBC Distribution Width SD 69.5 fl (35.1-43.9); Red Blood Count 2.55 M/mm3 (4.2-5.4); White Blood Count 7.3 K/mm3 (4.4-11.0)
[2019-04-11 06:55] LABS: Scan Indicated on CBC? Y/N YES- FLAGS NOTED
[2019-04-11 07:21] LABS: Differential Comment SCAN
[2019-04-11 07:56] VITALS: PULSE 75
[2019-04-11 08:33] VITALS: BP 128/69; PULSE 92; RESP 16; TEMP 36.7; O2SAT 96
[2019-04-11] MEDS: Ferrous Sulfate 325 MG Tablet PO (08:45)
[2019-04-11] MEDS: amLODIPine 5 MG Tablet PO (08:45)
[2019-04-11] MEDS: Gabapentin 100 MG Capsule PO (08:45)
--- NOTE | 2019-04-11 10:09 | PCM.PN.BLA ---
Progress Note Patient was seen independently and in conjunction with Rhoda Ramirez NP. She is afebrile. Vital signs are stable. She is maintaining an appropriate oxygen saturation of 96 to 98% on room air today. EGD showed mild gastritis only. Colonoscopy showed multiple small and large mouth diverticuli in the sigmoid colon and nonbleeding internal and external hemorrhoids. Denies nausea today, no dysuria, no hesitancy. She does report some mild left flank pain. All lab was personally reviewed today the patient received 1 unit of packed red blood cells yesterday for hemoglobin of 6. Recheck was 8. Hemoglobin today is 7.7. White blood cell count is now normal at 7.3 and the platelets are stable at 76,000. She has a persistent mild metabolic acidosis with a CO2 of 18. BUN is 24 and the creatinine today is 1.01, down from 1.99 on 04/09/2019. Vitamin D level is pending. Alert and oriented x3, appears to be in no acute distress, pleasant Mucous membranes are dry, no mucosal lesions Heart-regular rate and rhythm, no murmur, no gallop, no ectopy Lungs-clear to auscultation Abdomen-soft, no guarding with palpation, bowel sounds present, no suprapubic pain, mild left costophrenic angle pain with palpation No peripheral edema, no calf tenderness Impressions 1. Severe sepsis secondary to pyelonephritis 2. Acute on chronic anemia 3. Acute renal failure with metabolic acidosis-resolving 4. Dehydration 5. Endometrial cancer with metastatic disease to the lungs, hypertension, hypocalcemia 6. History of hypertension Continue Levaquin and Rocephin until urine culture is resulted. Patient is immunocompromised secondary to cancer and chemotherapy. Would prefer to keep her in the hospital until the culture/sensitivities are available. Check a serum albumin to correct for low serum calcium. Vitamin D levels are pending. Change Protonix to p.o. 40 mg once daily for mild gastritis Recheck H&H in the a.m.and a BMP Code Visit Inpatient E&M: 30804 Subs Hosp L2
[2019-04-11] MEDS: Acetaminophen 325 MG Tablet 650 MG PO (10:33)
[2019-04-11] MEDS: Ceftriaxone 1 GM/50 ML BAG IV (10:34)
--- NOTE | 2019-04-11 11:08 | DCINST_ITS ---
- Discharge Diagnoses Current Active Problems: Current Active and Chronic Problems UTI (urinary tract infection) (Acute) HTN (hypertension) (Chronic) Peripheral neuropathy (Chronic) Iron deficiency anemia (Chronic) GERD (gastroesophageal reflux disease) (Chronic) You will use the following diet at home:: No restrictions Discharge Activity: Return to Normal Activity Call your doctor if you observe: Fever of 101 or Higher, Shortness of breath, Dizziness, Fainting spells, Chest pain Additional Instructions: You will need to follow up with Dr. Rodriguez this week for repeat lab testing regarding your anemia. You were discharged on levaquin which is an antibiotic to treat your UTI. You will take this every 48 hours due to your kidney function. You will also need to take this at least two hours apart from your iron supplement as iron can decrease the absorption of the antibiotic. Allergies/Adverse Reactions: Allergies No Known Allergies Allergy (Verified 04/09/19 11:49) Medications to take at Discharge Acetaminophen [Tylenol] 500 mg PO Q6H PRN PRN 04/09/19 Amlodipine Besylate 5 mg PO DAILY 04/09/19 Benzonatate 100 mg PO TID PRN PRN 04/09/19 Ferrous Sulfate [Iron] 325 mg PO DAILY 04/09/19 Gabapentin [Neurontin] 100 mg PO BID 04/09/19 Lisinopril 20 mg PO DAILY 04/09/19 Levofloxacin [Levaquin] 750 mg PO Q48H #4 tab 04/11/19 Pantoprazole Sodium [Protonix] 40 mg PO DAILY #30 tab 04/11/19 The following prescriptions were given: Levofloxacin [Levaquin] 750 mg PO Q48H #4 tab Transmission Status: Pending to [facility]/pharmacy #[id number] Pantoprazole Sodium [Protonix] 40 mg PO DAILY #30 tab Transmission Status: Pending to [facility]/pharmacy #[id number] Primary Care Physician: [facility] ,Out of [Primary Care Provider] - Please follow up with your Primary Care Physician in: 1 Week Test Results: Test results from this visit will be discussed in further detail at your follow- up appointment, if applicable. Please Follow Up With: Liz Rodriguez MD When: Follow up this week as scheduled. Proposed Discharge Date: 04/11/19
--- NOTE | 2019-04-11 11:16 | PCM.DC.SUM ---
Discharge Date and Diagnosis Date of Admission: 04/09/19 Date of Discharge: 04/11/19 - Primary Discharge Diagnosis Active and Suspected Problems 1. Acute severe sepsis secondary to acute UTI/pyelonephritis 2. Acute kidney injury secondary to dehydration 3. Acute anemia on chronic iron deficiency anemia 4. Acute diarrhea-stool negative for C. difficile, enteric bacteriology negative. 5. Elevated glucose-suspected stress response. Hemoglobin A1c normal. 6. Metastatic endometrial cancer 7. Hypertension 8. Peripheral neuropathy 9. GERD 10. Hypocalcemia, hypophosphatemia, hypoalbuminemia - Secondary Discharge Diagnosis Chronic Problems HTN (hypertension) (Chronic) Peripheral neuropathy (Chronic) Iron deficiency anemia (Chronic) GERD (gastroesophageal reflux disease) (Chronic) Hospital Course and Treatment Dr. Craig- General Surgery Operations: None Procedures: Colonoscopy, EGD Summary of Care Provided: The patient is a 74 year old F admitted 04/09/2018 due to chills, malaise, diarrhea. 1. Acute severe sepsis secondary to acute UTI/pyelonephritis-(WBC 16.3, Temp 102.4F, tachycardic) UA significant for greater than 100 WBC, 500 leukocyte, 4+ bacteria. Blood cultures pending, no growth so far. Urine culture shows Staphylococcus epidermidis however this may be skin contaminant and colony count is 11-25,000. Urine obtained by clean-catch. Discharged on Levaquin 750 mg every 48 hours given creatinine clearance 43 for 7 days of antibiotic therapy at discharge. Instructed to take Levaquin at least 2 hours apart from iron supplementation given decreased absorption of Levaquin with iron supplementation. Follow-up with primary care provider within 1 week. 2. Acute kidney injury secondary to dehydration-resolved with IV fluids. 3. Acute anemia on chronic iron deficiency anemia-status post 1 unit PRBC for hemoglobin 6.0. Dr. Craig, general surgery consulted during admission. Stool for occult blood negative. EGD and colonoscopy revealed mild gastritis, otherwise no evidence of bleeding. Continue iron supplementation. Increase PPI to 40 mg daily. Suspect acute anemia as a result of chemotherapy regimen. Recommend repeat CBC by oncology this week. 4. Acute diarrhea-stool negative for C. difficile, enteric bacteriology negative. Diarrhea resolved. 5. Elevated glucose-suspected stress response. Hemoglobin A1c normal. 6. Metastatic endometrial cancer-follows with Dr. Rodriguez. Chemotherapy treatment canceled 04/08/19 due to fever and chills. Left chest port in place. Patient has follow-up this week. 7. Hypertension-stable, continue home amlodipine, lisinopril regimen. 8. Peripheral neuropathy-continue gabapentin regimen. 9. GERD-home omeprazole 20 mg daily change to Protonix 40 mg daily. 10. Hypocalcemia, hypophosphatemia, hypoalbuminemia-calcium gluconate x1. Vitamin D level pending. Further follow-up with oncology/PCP. General: Alert, Oriented x3, Cooperative HEENT: Atraumatic, PERRLA, EOMI, Normocephalic Neck: Supple, No JVD, Negative Carotid Bruits Lungs: Clear to auscultation, Normal air movement Cardiovascular: Regular rate, Regular Rhythm, Normal S1, Normal S2, No murmurs Abdomen: Bowel Sounds Present, Soft, Non Tender, Non-Distended Extremities: No clubbing, No cyanosis, No edema, Capillary Refill Less than 3 Seconds Skin: No rashes, No breakdown Musculoskeletal: No Tenderness to Palpation of Joints or Extremities Neurological: Cranial nerves II-XII grossly intact, Neuro grossly intact Psych/Mental Status: Normal Affect, Appropriate Patient seen and examined prior to discharge. Physical assessment as noted above. Patient is stable for discharge with follow up recommendations as noted above. This patient was seen by RHODA Mckeon under the supervision of Dr. Gordillo. - Physical Exam Vital Signs Temp Pulse Resp BP Pulse Ox 98.0 F 92 16 128/69 H 96 04/11/19 08:33 04/11/19 08:33 04/11/19 08:33 04/11/19 08:33 04/11/19 08:33 Oxygen Delivery Method Room Air Weight: 178 lb 12.718 oz Body Mass Index (BMI) 30.7 Intake and Output for Last 24 Hours 04/09/19 04/10/19 04/11/19 23:59 23:59 23:59 Intake Total 4120 / 4120 1531 / 1531 Balance 4120 / 4120 1531 / 1531 Microbiology Past 72 Hours 04/09/19 14:15 Urine Culture - Final Urine, Clean Catch Staphylococcus epidermidis 04/09/19 17:55 Enteric Bacteriology - Final Stool 04/09/19 17:55 C. difficile DNA Amplification - Final Stool 04/09/19 17:55 Stool Occult Blood (CUONG) - Final Stool Laboratory Tests Past 24 Hrs 04/10/19 04/10/19 04/11/19 06:00 13:50 06:15 WBC 7.3 RBC 2.55 L Hgb 8.0 L 7.7 L Hct 25.0 L 24.6 L MCV 96.5 MCH 30.2 MCHC 31.3 L RDW 20.8 H RDW Differential 69.5 H Plt Count 76 L MPV 11.5 Differential Comment SCAN Sodium Potassium Chloride Carbon Dioxide Anion Gap BUN Creatinine Estim Creat Clear Calc Est GFR (MDRD) Af Amer Est GFR (MDRD) Non-Af BUN/Creatinine Ratio Glucose Calcium Phosphorus Albumin Vit D 1,25-Dihydroxy Crossmatch See Detail 04/11/19 04/11/19 04/11/19 06:15 06:15 06:15 WBC RBC Hgb Hct MCV MCH MCHC RDW RDW Differential Plt Count MPV Differential Comment Sodium 140 Potassium 3.7 Chloride 116 H Carbon Dioxide 18.0 L Anion Gap 6 BUN 24 H Creatinine 1.01 Estim Creat Clear Calc 43.48 Est GFR (MDRD) Af Amer 69 Est GFR (MDRD) Non-Af 57 L BUN/Creatinine Ratio 23.8 H Glucose 85 Calcium 7.2 L Phosphorus Albumin 2.0 L Vit D 1,25-Dihydroxy Pending Crossmatch 04/11/19 06:15 WBC RBC Hgb Hct MCV MCH MCHC RDW RDW Differential Plt Count MPV Differential Comment Sodium Potassium Chloride Carbon Dioxide Anion Gap BUN Creatinine Estim Creat Clear Calc Est GFR (MDRD) Af Amer Est GFR (MDRD) Non-Af BUN/Creatinine Ratio Glucose Calcium Phosphorus Pending Albumin Vit D 1,25-Dihydroxy Crossmatch Discharge Diet: No Restrictions Discharge Activity: Return to Normal Activity Call your doctor if you observe: Fever of 101 or Higher, Shortness of breath, Dizziness, Fainting spells, Chest pain Home Medications: Medications to take at Discharge Acetaminophen [Tylenol] 500 mg PO Q6H PRN PRN 04/09/19 Amlodipine Besylate 5 mg PO DAILY 04/09/19 Benzonatate 100 mg PO TID PRN PRN 04/09/19 Ferrous Sulfate [Iron] 325 mg PO DAILY 04/09/19 Gabapentin [Neurontin] 100 mg PO BID 04/09/19 Lisinopril 20 mg PO DAILY 04/09/19 Levofloxacin [Levaquin] 750 mg PO Q48H #4 tab 04/11/19 Pantoprazole Sodium [Protonix] 40 mg PO DAILY #30 tab 04/11/19 Following Prescrptions Were Given to Patient: Levofloxacin [Levaquin] 750 mg PO Q48H #4 tab Transmission Status: Pending to [facility]/pharmacy #[id number] Pantoprazole Sodium [Protonix] 40 mg PO DAILY #30 tab Transmission Status: Pending to [facility]acy [facility][id number] Primary Care Physician: Brittany Joshi,Out of [Primary Care Provider] - Please follow up with your Primary Care Physician in: 1 Week Please Follow Up With: Liz Rodriguez MD When: Follow up this week as scheduled. Disposition: Home Minutes spent on discharge:: 35 Patient Condition:: Stable Medical Necessity - Tobacco Use Smoking Status: Never smoker Tobacco Use: Non-smoker, Secondhand Meaningful Use Info Meaningful Use Diagnoses (Choose all that apply): None applicable
[2019-04-11 11:18] LABS: Phosphorus 1.4 mg/dL (2.5-4.9)
[2019-04-11 12:57] VITALS: PULSE 75
[2019-04-11] MEDS: 0.9% NaCl Peripheral Flush Adult/Peds IV (14:53)
[2019-04-11 15:02] VITALS: BP 155/72; PULSE 78; RESP 16; TEMP 37; O2SAT 97
--- NOTE | 2019-04-12 14:52 | CASEMGMT ---
ELIZABETH CM DC PHONE CALL DC DATE: 04/11/19 DC Disposition: Home LACE/STRATA: 07/22 Attempted call to listed phone. Call did not go through. Citlaly LEONGN RN ACM
[2019-04-14 13:25] LABS: Vitamin D 1,25-Dihydroxy 50.9 pg/mL (19.9-79.3)
== END 2019-04-11 15:45 | disposition home or self-care (01) | DRG 690 ==
LOC: ED 13:41 → MS3 16:50
PROVIDERS: Nurse Practitioner Family; Surgery; Admitting Provider Family Medicine; Emergency Provider Emergency Medicine; Referring Provider Family Medicine; Visit Provider Internal Medicine
PROC: 0DJD8ZZ Inspection of Lower Intestinal Tract, Via Natural or Artificial Opening Endoscopic (ICD-10-PCS; CPT 45378; principal; 2019-04-10 17:00)
DX: N10 Acute pyelonephritis (principal); C78.00 Secondary malignant neoplasm of unspecified lung; E87.2 Acidosis; N17.9 Acute kidney failure, unspecified; E86.0 Dehydration; I10 Essential (primary) hypertension; K21.9 Gastro-esophageal reflux disease without esophagitis; C54.1 Malignant neoplasm of endometrium; G62.9 Polyneuropathy, unspecified; K44.9 Diaphragmatic hernia without obstruction or gangrene; K57.30 Diverticulosis of large intestine without perforation or abscess without bleeding; K64.8 Other hemorrhoids; K64.4 Residual hemorrhoidal skin tags; K29.70 Gastritis, unspecified, without bleeding; D50.9 Iron deficiency anemia, unspecified; R73.9 Hyperglycemia, unspecified; E88.09 Other disorders of plasma-protein metabolism, not elsewhere classified; E83.51 Hypocalcemia; E83.39 Other disorders of phosphorus metabolism; R19.7 Diarrhea, unspecified; Z66 Do not resuscitate; Z79.899 Other long term (current) drug therapy; Z90.722 Acquired absence of ovaries, bilateral; Z90.79 Acquired absence of other genital organ(s); Z90.710 Acquired absence of both cervix and uterus
CPT/HCPCS: 36415; 36591; 80048; 80076; 81001; 82040; 82274; 82652; 83036; 83605; 83690; 83735; 84100; 85014; 85018; 85025; 85027; 86850; 86900; 86920; 86922; 87040; 87077; 87086; 87088; 87186; 87493; 87506; 88305; 88342; 92507; 92610; 97162; 97165; 97535; 97802; 99283; J7030; J7040; P9016; A4216; J0610

== ENCOUNTER 2019-05-07 06:55 | Day surgery (SDC) | payer MEDICARE, SELFPAY ==
[2019-04-10 15:16] VITALS: BMI 30.7
[2019-05-07 07:17] VITALS: BP 140/57; PULSE 91; RESP 14; TEMP 36.3; O2SAT 100; BMI 28.6
[2019-05-07] MEDS: Cefazolin 2 GM in 0.9% Normal Saline 100 ML IV (07:25)
--- NOTE | 2019-05-07 09:22 | DCINST_ITS ---
Discharge Diet: Light diet - advance as tolerated Discharge Activity: Return to Normal Activity Call your doctor if your incision/area has: Continuous Slow Oozing, Sudden Increased Bleeding, Increased Pain/ Swelling Call your doctor if you observe: Fever of 101 or Higher Suture Line Care: Avoid Pulling/Pushing, Avoid Pinching/Bending Allergies/Adverse Reactions: Allergies No Known Allergies Allergy (Verified 05/06/19 08:08) Medications to take at Discharge Acetaminophen [Tylenol] 500 mg PO Q6H PRN PRN 04/09/19 Amlodipine Besylate 5 mg PO DAILY 04/09/19 Benzonatate 100 mg PO TID PRN PRN 04/09/19 Ferrous Sulfate [Iron] 325 mg PO BID 04/09/19 Gabapentin [Neurontin] 100 mg PO BID 04/09/19 Lisinopril 20 mg PO DAILY 04/09/19 Pantoprazole Sodium [Protonix] 40 mg PO DAILY #30 tab 04/11/19 Primary Care Physician: [facility] ,Out of [Primary Care Provider] - Test Results: Test results from this visit will be discussed in further detail at your follow- up appointment, if applicable. Please Follow Up With: Joshua Browning MD When: please call to make an appointment - 3 months
--- NOTE | 2019-05-07 09:49 | OP.PCM_ITS ---
Report of Operation Date of Procedure: 05/07/19 Pre-Operative Diagnosis: Left ureteral obstruction left hydronephrosis history of cancer Post-Operative Diagnosis: The same Surgery/Procedure Performed:: Cystoscopy, left retrograde pyelogram interpretation fluoroscopic images left stent placement Description of Surgical Findings:: 74-year-old female with obstruction of the left kidney she is undergoing chemotherapy treatments stent has been requested to alleviate the obstruction of the left kidney she is not very symptomatic. But given the fact that she may get more chemotherapy would want to conserve her renal let us keep her kidney draining she has significant hydronephrosis on the left kidney and we can proceed with a cystoscopy left retrograde pyelogram left stent placement. 74-year-old female taken back to the operating room she was brought into the operating room #3, she underwent general anesthesia by Dr. Lobato, she was placed supine on the table with the legs were then placed in stirrups, the vaginal urethra were area were prepped and draped at the nursing team, she was loaded with antibiotics before the procedure, she had SCDs on for DVT prophylaxis, I then used a 21 Marshallese rigid cystourethroscope was able to get i nto the urethra quite easily I then identified the bladder the entire length of the urethra is normal the trigone was normal the bladder was nice and smooth no tumors or stones noted within the bladder the mucosa was normal, I then identified the left ureteral orifice this was cannulated with a 0.038 Glidewire from [employer]. Advance a Glidewire up into the kidney over the Glidewire advanced a 5 Marshallese open-ended Pollick catheter, we then injected contrast up into the kidney at 50-50 strength which is diluted. Retrograde pyelogram demonstrated significant hydronephrosis and hydroureter in the left kidney after doing the retrograde pyelogram I then backloaded the Pollick catheter off the wire and then advanced a 6 Marshallese by 24 cm stent using a pusher up into the left kidney. Once the stent was in good position in the kidney and in the bladder I pulled the wire gently and the stent coiled in the kidney and coiled in the bladder we then observe for drainage and there was some foul purulent urine draining from the left kidney this was sent off for culture. She will be given antibiotics for a few days the bladder was then drained her anesthesia was reversed and she was taken back to PACU in good condition she will follow-up in the few weeks in the office. Culture Type of Anesthesia:: General Specimen's removed: urine for culture Drains: stent left side. Estimated Blood Loss (mL): none - Complications none - Admit VTE Documentation VTE Present on Admission: No VTE Mechan Device Prophylaxis: SCD's
[2019-05-07 09:54] VITALS: BP 140/57; BP 99/38; PULSE 75; RESP 16; TEMP 36.4; O2SAT 96
[2019-05-07 10:00] VITALS: BP 106/44; BP 140/57; PULSE 75; RESP 16; O2SAT 95
[2019-05-07 10:15] VITALS: BP 140/57; BP 94/50; PULSE 75; RESP 16; O2SAT 95
[2019-05-07 10:30] VITALS: BP 110/46; BP 140/57; PULSE 75; RESP 16; TEMP 36.1; O2SAT 95
[2019-05-07 11:05] VITALS: BP 140/57
== END 2019-05-07 11:18 | disposition home or self-care (01) ==
LOC: SDC 06:58 → AC 06:59
PROVIDERS: Referring Provider Urology; Visit Provider Urology
PROC: (CPT 52332; principal; 2019-05-07 08:50)
DX: N13.1 Hydronephrosis with ureteral stricture, not elsewhere classified (principal); C54.1 Malignant neoplasm of endometrium; C34.90 Malignant neoplasm of unspecified part of unspecified bronchus or lung; I10 Essential (primary) hypertension; K21.9 Gastro-esophageal reflux disease without esophagitis
CPT/HCPCS: 00910; 52005; 52332; 76000; 87086; J7120; A4216; C1769; C2617; J2405